=== PATIENT | male | born 1975 | race Caucasian/White ===

== ENCOUNTER 2022-11-15 15:33 | Inpatient (IN) | payer OTHER ==
[2022-11-15 16:53] VITALS: BMI 23.1
[2022-11-15] MEDS ORDERED: LOPERAMIDE HCL 2 MG CAPSULE PO PRN (17:59)
[2022-11-15] MEDS ORDERED: IBUPROFEN 400 MG TABLET (FP) PO PRN (17:59)
[2022-11-15] MEDS ORDERED: IBUPROFEN 600 MG TABLET (FP) PO PRN (17:59)
[2022-11-15] MEDS ORDERED: POLYETHYLENE GLYCOL (HEALTHYLAX) 3350 17 GM PACKET PO PRN (17:59)
[2022-11-15] MEDS ORDERED: P-EPHED 60MG/TRIPROLIDI 2.5MG TABLET PO PRN (17:59)
[2022-11-15] MEDS ORDERED: ONDANSETRON *ODT* 4 MG TABLET SL PRN (17:59)
[2022-11-15] MEDS ORDERED: guaiFENesin 200 MG/10 ML 10 ML UNIT-DOSE CUPS PO PRN (17:59)
[2022-11-15] MEDS ORDERED: BISMUTH SUBSALICYLATE 524 MG/30 ML PO PRN (17:59)
[2022-11-15] MEDS ORDERED: MAGNESIUM HYDROX 2400MG/30ML ORAL SUSPENSION 30 ML CUP PO PRN (17:59)
[2022-11-15] MEDS ORDERED: MAG HYDROX/AL HYDROX/SIMETH 30 ML UNIT-DOSE CUP PO PRN (17:59)
[2022-11-15] MEDS ORDERED: BENZOCAINE/MENTHOL (CHLORASEPTIC ) LOZENGE MM PRN (17:59)
[2022-11-15] MEDS ORDERED: ACETAMINOPHEN 325 MG TABLET (FP) PO PRN ×2 (17:59)
[2022-11-15] MEDS ORDERED: DICYCLOMINE HCL 10 MG CAPSULE PO PRN (17:59)
[2022-11-15] MEDS ORDERED: chlordiazePOXIDE HCL 25 MG CAPSULE PO ONE (18:02)
[2022-11-15] MEDS ORDERED: chlordiazePOXIDE HCL 25 MG CAPSULE ONE (18:11)
[2022-11-15] MEDS: THIAMINE HCL 100 MG TABLET (FP) PO SCH (22:05)
[2022-11-15] MEDS: chlordiazePOXIDE HCL 25 MG CAPSULE PO SCH (22:05)
[2022-11-15] MEDS: MELATONIN 5 MG TABLETS PO PRN (22:06)
[2022-11-15] MEDS: NICOTINE 10 MG CARTRIDGE (INHALER) IH PRN (22:07)
[2022-11-16] MEDS: chlordiazePOXIDE HCL 25 MG CAPSULE PO SCH ×4 (05:26→22:00)
[2022-11-16] MEDS: PRENATAL VITAMINS W/ FOLIC ACID TABLET (FP) PO SCH (10:10)
[2022-11-16] MEDS: NICOTINE 10 MG CARTRIDGE (INHALER) IH PRN ×3 (10:12→22:03)
[2022-11-16 11:29] LABS: HEMOGLOBIN 14.9 GM/dL (11.7-16.9); MCH 30.2 pg (25.7-33.7); MCHC 33.9 g/dl (32.0-35.9); MEAN CELL VOLUME 89.2 fl (80-96); MEAN PLT VOLUME 7.9 fl (7.5-11.1); PLATELET COUNT 254 10^3/uL (134-434); RBC 4.94 M/mm3 (4.00-5.60); RDW 15.6 % (11.9-15.9); WHITE BLOOD COUNT 7.7 K/mm3 (4.0-10.0)
[2022-11-16 11:31] LABS: BLOOD UREA NITROGEN 14.6 mg/dL (7-18); CALCIUM 9.7 mg/dL (8.5-10.1)
[2022-11-16 11:32] LABS: ALBUMIN 4.4 g/dl (3.4-5.0)
[2022-11-16 11:35] LABS: CREATININE 1.1 mg/dL (0.55-1.3)
[2022-11-16 11:36] LABS: BILIRUBIN,TOTAL 1.1 mg/dL (0.2-1); TOT PROT 8.2 g/dl (6.4-8.2)
[2022-11-16] MEDS: chlordiazePOXIDE HCL 25 MG CAPSULE PO PRN (13:24)
[2022-11-16] MEDS: THIAMINE HCL 100 MG TABLET (FP) PO SCH (22:01)
[2022-11-16] MEDS: MELATONIN 5 MG TABLETS PO PRN (22:01)
[2022-11-17] MEDS: chlordiazePOXIDE HCL 25 MG CAPSULE PO SCH ×4 (05:18→22:11)
[2022-11-17] MEDS: NICOTINE 10 MG CARTRIDGE (INHALER) IH PRN ×4 (05:18→22:14)
[2022-11-17] MEDS: METHOCARBAMOL 500 MG TABLET PO PRN ×2 (06:59→22:12)
[2022-11-17] MEDS: PRENATAL VITAMINS W/ FOLIC ACID TABLET (FP) PO SCH (10:07)
[2022-11-17] MEDS: chlordiazePOXIDE HCL 25 MG CAPSULE PO PRN ×2 (13:17→17:33)
[2022-11-17] MEDS: MELATONIN 5 MG TABLETS PO PRN (22:12)
[2022-11-17] MEDS: THIAMINE HCL 100 MG TABLET (FP) PO SCH (22:12)
[2022-11-18] MEDS ORDERED: chlordiazePOXIDE HCL 10 MG CAPSULE PO PRN
[2022-11-18] MEDS: NICOTINE 10 MG CARTRIDGE (INHALER) IH PRN ×4 (05:44→22:12)
[2022-11-18] MEDS: chlordiazePOXIDE HCL 10 MG CAPSULE PO SCH ×4 (05:44→22:12)
[2022-11-18] MEDS: PRENATAL VITAMINS W/ FOLIC ACID TABLET (FP) PO SCH (10:01)
[2022-11-18] MEDS: MELATONIN 5 MG TABLETS PO PRN (22:12)
[2022-11-18] MEDS: THIAMINE HCL 100 MG TABLET (FP) PO SCH (22:12)
[2022-11-19] MEDS: chlordiazePOXIDE HCL 10 MG CAPSULE PO SCH ×2 (04:57→17:42)
[2022-11-19] MEDS: NICOTINE 10 MG CARTRIDGE (INHALER) IH PRN ×3 (04:58→17:44)
[2022-11-19] MEDS: METHOCARBAMOL 500 MG TABLET PO PRN ×2 (07:49→22:12)
[2022-11-19] MEDS: PRENATAL VITAMINS W/ FOLIC ACID TABLET (FP) PO SCH (10:00)
[2022-11-19] MEDS ORDERED: chlordiazePOXIDE HCL 10 MG CAPSULE PO ONE (10:53)
[2022-11-19] MEDS: MELATONIN 5 MG TABLETS PO PRN (22:12)
[2022-11-19] MEDS: THIAMINE HCL 100 MG TABLET (FP) PO SCH (22:12)
[2022-11-20] MEDS ORDERED: chlordiazePOXIDE HCL 10 MG CAPSULE PO ONE (05:00)
[2022-11-20] MEDS: NICOTINE 10 MG CARTRIDGE (INHALER) IH PRN (05:49)
[2022-11-20 06:16] VITALS: PULSE 90
[2022-11-20 09:19] VITALS: BP 133/90; RESP 20; TEMP 97.9
[2022-11-20] MEDS: PRENATAL VITAMINS W/ FOLIC ACID TABLET (FP) PO SCH (10:16)
== END 2022-11-20 10:01 | disposition home or self-care (01) | DRG 775 ==
LOC: YASAS 15:33 → Y3N 18:03
PROVIDERS: ADMIT Allergy & Immunology; ATTEND Surgery
PROC: HZ2ZZZZ Detoxification Services for Substance Abuse Treatment (ICD-10-PCS; principal; 2022-11-15)
DX: F10.230 Alcohol dependence with withdrawal, uncomplicated (principal); F17.210 Nicotine dependence, cigarettes, uncomplicated; F32.A Depression, unspecified; H54.61 Unqualified visual loss, right eye, normal vision left eye; Z86.69 Personal history of other diseases of the nervous system and sense organs; Z87.81 Personal history of (healed) traumatic fracture; Z99.89 Dependence on other enabling machines and devices; Z91.199 Patient's noncompliance with other medical treatment and regimen due to unspecified reason
CPT/HCPCS: 36415; 80053; 83036; 85027; 86780; C9803-CS; U0003; U0005

== ENCOUNTER 2023-07-06 14:18 | Inpatient (IN) | payer SELFPAY ==
[2023-07-06 15:22] VITALS: BMI 25.0
[2023-07-06] MEDS ORDERED: MAGNESIUM HYDROX 2400MG/30ML ORAL SUSPENSION 30 ML CUP PO PRN (16:31)
[2023-07-06] MEDS ORDERED: MAG HYDROX/AL HYDROX/SIMETH 30 ML UNIT-DOSE CUP PO PRN (16:31)
[2023-07-06] MEDS ORDERED: chlordiazePOXIDE HCL 25 MG CAPSULE PO PRN (16:31)
[2023-07-06] MEDS ORDERED: DICYCLOMINE HCL 10 MG CAPSULE PO PRN (16:31)
[2023-07-06] MEDS ORDERED: NALOXONE HCL 0.4 MG/ML VIAL IM PRN (16:31)
[2023-07-06] MEDS ORDERED: guaiFENesin 600 MG TABLET.ER (FP) PO PRN (16:31)
[2023-07-06] MEDS ORDERED: IBUPROFEN 600 MG TABLET (FP) PO PRN (16:31)
[2023-07-06] MEDS ORDERED: POLYETHYLENE GLYCOL (HEALTHYLAX) 3350 17 GM PACKET PO PRN (16:31)
[2023-07-06] MEDS ORDERED: NALOXONE HCL (KLOXXADO) 8 MG SPRAY NS PRN (16:31)
[2023-07-06] MEDS ORDERED: BENZONATATE 200 MG CAPSULE PO PRN (16:31)
[2023-07-06] MEDS ORDERED: BENZOCAINE/MENTHOL (CHLORASEPTIC ) LOZENGE MM PRN (16:31)
[2023-07-06] MEDS ORDERED: ACETAMINOPHEN 325 MG TABLET (FP) PO PRN (16:31)
[2023-07-06] MEDS ORDERED: ONDANSETRON *ODT* 4 MG TABLET SL PRN (16:31)
[2023-07-06] MEDS ORDERED: chlordiazePOXIDE HCL 25 MG CAPSULE ONE (16:59)
[2023-07-06] MEDS: chlordiazePOXIDE HCL 25 MG CAPSULE PO SCH ×2 (17:12→22:09)
[2023-07-06] MEDS: cloNIDine HCL 0.1 MG TABLET PO PRN (19:19)
[2023-07-06] MEDS: NICOTINE POLACRILEX 2 MG GUM BUC PRN (20:16)
[2023-07-06] MEDS: MELATONIN 5 MG TABLETS PO SCH (22:09)
[2023-07-06] MEDS: hydrOXYzine PAMOATE 25 MG CAPSULE (FP) PO PRN (22:09)
[2023-07-06] MEDS: METHOCARBAMOL 500 MG TABLET PO PRN (22:09)
[2023-07-06] MEDS: THIAMINE HCL 100 MG TABLET (FP) PO SCH (22:09)
[2023-07-06] MEDS: BISMUTH SUBSALICYLATE 524 MG/30 ML PO PRN (22:44)
[2023-07-07] MEDS: chlordiazePOXIDE HCL 25 MG CAPSULE PO SCH ×4 (05:33→22:16)
[2023-07-07] MEDS: METHOCARBAMOL 500 MG TABLET PO PRN (06:06)
[2023-07-07] MEDS: hydrOXYzine PAMOATE 25 MG CAPSULE (FP) PO PRN ×2 (06:06→17:25)
[2023-07-07] MEDS: BISMUTH SUBSALICYLATE 524 MG/30 ML PO PRN ×2 (09:45→18:21)
[2023-07-07] MEDS: PRENATAL VITAMINS W/ FOLIC ACID TABLET (FP) PO SCH (10:12)
[2023-07-07] MEDS: LOPERAMIDE HCL 2 MG CAPSULE PO PRN (10:13)
[2023-07-07 11:34] LABS: HEMATOCRIT 40.7 % (35.4-49); HEMOGLOBIN 14.4 GM/dL (11.7-16.9); MCH 31.1 pg (25.7-33.7); MCHC 35.5 g/dl (32.0-35.9); MEAN CELL VOLUME 87.8 fl (80-96); MEAN PLT VOLUME 8.2 fl (7.5-11.1); PLATELET COUNT 239 10^3/uL (134-434); RBC 4.63 M/mm3 (4.00-5.60); RDW 12.7 % (11.9-15.9); WHITE BLOOD COUNT 10.2 K/mm3 (4.0-10.0)
[2023-07-07 11:35] LABS: CHLORIDE 97 mmol/L (98-107); POTASSIUM 3.7 mmol/L (3.5-5.1); SODIUM 133 mmol/L (136-145)
[2023-07-07 11:40] LABS: ALBUMIN 3.8 g/dl (3.4-5.0); ANION GAP 8 mmol/L (4-13); BLOOD UREA NITROGEN 11.7 mg/dL (7-18); CALCIUM 8.1 mg/dL (8.5-10.1); CO2 28 mmol/L (21-32); GLUCOSE,RANDOM 82 mg/dL (74-106)
[2023-07-07 11:43] LABS: CREATININE 0.8 mg/dL (0.55-1.3); SGOT/AST 56 U/L (15-37); SGPT/ALT 38 U/L (13-61)
[2023-07-07 11:46] LABS: ALK PHOS 90 U/L (45-117)
[2023-07-07] MEDS: NICOTINE POLACRILEX 2 MG GUM BUC PRN ×2 (14:06→22:18)
[2023-07-07] MEDS: cloNIDine HCL 0.1 MG TABLET PO PRN ×2 (14:07→22:16)
[2023-07-07] MEDS: THIAMINE HCL 100 MG TABLET (FP) PO SCH (22:16)
[2023-07-07] MEDS: MELATONIN 5 MG TABLETS PO SCH (22:16)
[2023-07-08] MEDS: chlordiazePOXIDE HCL 25 MG CAPSULE PO SCH ×4 (05:16→22:05)
[2023-07-08] MEDS: hydrOXYzine PAMOATE 25 MG CAPSULE (FP) PO PRN ×3 (05:19→22:05)
[2023-07-08] MEDS: NICOTINE POLACRILEX 2 MG GUM BUC PRN ×6 (05:20→22:07)
[2023-07-08] MEDS: PRENATAL VITAMINS W/ FOLIC ACID TABLET (FP) PO SCH (10:02)
[2023-07-08] MEDS: cloNIDine HCL 0.1 MG TABLET PO PRN ×2 (10:04→14:34)
[2023-07-08] MEDS: LOPERAMIDE HCL 2 MG CAPSULE PO PRN (19:05)
[2023-07-08] MEDS ORDERED: LISINOPRIL 5 MG TABLET PO ONE (21:54)
[2023-07-08] MEDS: MELATONIN 5 MG TABLETS PO SCH (22:05)
[2023-07-08] MEDS: THIAMINE HCL 100 MG TABLET (FP) PO SCH (22:05)
[2023-07-09] MEDS ORDERED: chlordiazePOXIDE HCL 10 MG CAPSULE PO PRN
[2023-07-09] MEDS: METHOCARBAMOL 500 MG TABLET PO PRN ×2 (01:12→22:01)
[2023-07-09] MEDS: chlordiazePOXIDE HCL 10 MG CAPSULE PO SCH ×4 (05:08→22:01)
[2023-07-09] MEDS: IBUPROFEN 400 MG TABLET (FP) PO PRN (05:10)
[2023-07-09] MEDS: NICOTINE POLACRILEX 2 MG GUM BUC PRN ×5 (05:19→18:31)
[2023-07-09] MEDS ORDERED: hydrOXYzine PAMOATE 50 MG CAPSULE (FP) PO ONE (08:45)
[2023-07-09] MEDS: PRENATAL VITAMINS W/ FOLIC ACID TABLET (FP) PO SCH (10:20)
[2023-07-09 12:19] LABS: HEMATOCRIT 41.3 % (35.4-49); HEMOGLOBIN 13.5 GM/dL (11.7-16.9); MCHC 32.7 g/dl (32.0-35.9); MEAN CELL VOLUME 91.9 fl (80-96); MEAN PLT VOLUME 9.2 fl (7.5-11.1); PLATELET COUNT 193 10^3/uL (134-434); RBC 4.49 M/mm3 (4.00-5.60); RDW 13.3 % (11.9-15.9); WHITE BLOOD COUNT 8.6 K/mm3 (4.0-10.0)
[2023-07-09] MEDS: hydrOXYzine PAMOATE 25 MG CAPSULE (FP) PO PRN ×2 (13:02→22:01)
[2023-07-09] MEDS: LOPERAMIDE HCL 2 MG CAPSULE PO PRN (18:33)
[2023-07-09] MEDS: MELATONIN 5 MG TABLETS PO SCH (22:01)
[2023-07-09] MEDS: THIAMINE HCL 100 MG TABLET (FP) PO SCH (22:01)
[2023-07-10] MEDS: chlordiazePOXIDE HCL 10 MG CAPSULE PO SCH ×2 (05:28→17:24)
[2023-07-10] MEDS: hydrOXYzine PAMOATE 25 MG CAPSULE (FP) PO PRN ×3 (05:29→22:16)
[2023-07-10] MEDS: NICOTINE POLACRILEX 2 MG GUM BUC PRN ×4 (05:31→22:17)
[2023-07-10] MEDS: PRENATAL VITAMINS W/ FOLIC ACID TABLET (FP) PO SCH (10:11)
[2023-07-10] MEDS: METHOCARBAMOL 500 MG TABLET PO PRN ×2 (10:11→22:16)
[2023-07-10] MEDS: BISMUTH SUBSALICYLATE 524 MG/30 ML PO PRN (15:25)
[2023-07-10] MEDS: IBUPROFEN 400 MG TABLET (FP) PO PRN (20:08)
[2023-07-10] MEDS: MELATONIN 5 MG TABLETS PO SCH (22:16)
[2023-07-10] MEDS: THIAMINE HCL 100 MG TABLET (FP) PO SCH (22:16)
[2023-07-11] MEDS ORDERED: chlordiazePOXIDE HCL 10 MG CAPSULE PO ONE (05:00)
[2023-07-11] MEDS: hydrOXYzine PAMOATE 25 MG CAPSULE (FP) PO PRN (06:03)
[2023-07-11] MEDS: NICOTINE POLACRILEX 2 MG GUM BUC PRN (06:03)
[2023-07-11 06:44] VITALS: RESP 18
[2023-07-11 09:16] VITALS: BP 145/92; PULSE 102; TEMP 97.8
[2023-07-11] MEDS: PRENATAL VITAMINS W/ FOLIC ACID TABLET (FP) PO SCH (10:51)
== END 2023-07-11 09:27 | disposition home or self-care (01) | DRG 775 ==
LOC: YASAS 14:18 → Y3N 16:40
PROVIDERS: ADMIT Allergy & Immunology; ATTEND Surgery
PROC: HZ2ZZZZ Detoxification Services for Substance Abuse Treatment (ICD-10-PCS; principal; 2023-07-06)
DX: F10.230 Alcohol dependence with withdrawal, uncomplicated (principal); F17.210 Nicotine dependence, cigarettes, uncomplicated; F32.A Depression, unspecified; Z91.199 Patient's noncompliance with other medical treatment and regimen due to unspecified reason
CPT/HCPCS: 36415; 80053; 80307; 85027; 86780; 87635